=== PATIENT | female | born 1990 | race Caucasian/White ===

== ENCOUNTER 2019-01-30 07:40 | Observation (INO) | payer BC, MEDICAID ==
[2019-01-30 08:39] LABS: ADD MAN DIFF? NO
[2019-01-30] MEDS: LACTATED RINGER'S 1,000 ML IV ×3 (08:39→17:07)
[2019-01-30 09:13] LABS: WHITE BLOOD COUNT 6.4 10^3/ul (4.8-10.8)
[2019-01-30 09:13] LABS: BASOPHILS % 0.5 % (0.0-2.0); EOSINOPHILS # 0.2 10^3/ul (0.0-0.5); EOSINOPHILS % 2.5 % (0.0-7.0); HEMATOCRIT 38.5 % (37.0-47.0); HEMOGLOBIN 12.8 g/dl (12.0-16.0); LYMPHOCYTES # 2.4 10^3/ul (0.8-2.9); LYMPHOCYTES % 37.5 % (15.0-51.0); MEAN CORPUSCULAR HEMOGLOBIN 29.8 pg (29.0-33.0); MEAN CORPUSCULAR HGB CONC 33.2 g/dl (32.0-37.0); MEAN CORPUSCULAR VOLUME 89.5 fl (82.0-101.0); MEAN PLATELET VOLUME 10.6 fl (7.4-10.4); MONOCYTE # 0.4 10^3/ul (0.3-0.9); MONOCYTES % 6.4 % (0.0-11.0); NEUTROPHIL # 3.4 10^3/ul (1.6-7.5); NEUTROPHILS % 52.9 % (39.0-77.0); PLATELET COUNT 240 10^3/UL (140-415)
[2019-01-30] MEDS ORDERED: BUPIVACAINE 0.5%/EPI (SDV) 30 ML INJ (09:35)
[2019-01-30] MEDS ORDERED: ROCURONIUM 50 MG INJ (10:22)
[2019-01-30] MEDS ORDERED: MIDAZOLAM 1 MG/ML 2 ML INJ (10:22)
[2019-01-30] MEDS ORDERED: LIDOCAINE 100 MG SYRINGE (10:22)
[2019-01-30] MEDS ORDERED: PROPOFOL 20 ML (10:22)
[2019-01-30] MEDS ORDERED: CEFAZOLIN 1 GM INJ (10:22)
[2019-01-30] MEDS ORDERED: FENTAnyl 50 MCG/ML VIAL ×2 (10:22→11:42)
[2019-01-30] MEDS ORDERED: DEXAMETHASONE 4 MG/ML 5 ML INJ (10:23)
[2019-01-30] MEDS ORDERED: SUGAMMADEX SODIUM 200 MG/2 ML VIAL IV (10:23)
[2019-01-30] MEDS ORDERED: ONDANSETRON 4 MG INJ (10:23)
[2019-01-30] MEDS ORDERED: METOCLOPRAMIDE 10 MG INJ IV (10:30)
[2019-01-30] MEDS ORDERED: FENTAnyl 50 MCG/ML VIAL IV (10:30)
[2019-01-30] MEDS ORDERED: DESFLURANE 15 MIN (10:30)
[2019-01-30] MEDS ORDERED: LABETALOL HCL 20MG INJ IV (10:30)
[2019-01-30] MEDS ORDERED: HYDROmorphONE 1 MG/5 ML IV SYRINGE IV (10:30)
[2019-01-30] MEDS ORDERED: hydrALAzine 20 MG INJ IV (10:30)
[2019-01-30] MEDS: BUPIVACAINE 0.5%/EPI (SDV) 30 ML INJ INJ ×2 (11:09)
[2019-01-30] MEDS: HYDROmorphONE 1 MG/5 ML IV SYRINGE IV ×2 (12:53→12:58)
[2019-01-30] MEDS: MEPERIDINE 25 MG INJ IV (13:13)
[2019-01-30] MEDS: ONDANSETRON 4 MG INJ IV (13:13)
[2019-01-30] MEDS ORDERED: ONDANSETRON 4 MG INJ IV (13:30)
[2019-01-30] MEDS ORDERED: DIPHENHYDRAMINE 50 MG INJ IV (13:30)
[2019-01-30] MEDS ORDERED: HYDROCODONE/APAP (5/325) TAB PO (13:30)
[2019-01-30] MEDS ORDERED: KETOROLAC 30 MG INJ (13:33)
[2019-01-30] MEDS: FENTAnyl 50 MCG/ML VIAL IV ×2 (13:40→14:17)
[2019-01-30] MEDS: KETOROLAC 30 MG INJ IV ×2 (15:44→23:27)
[2019-01-30 16:07] LABS: ADD MAN DIFF? NO
[2019-01-30 16:09] LABS: ABNORMAL IP MESSAGE 1; BASOPHILS % 0.2 % (0.0-2.0); HEMATOCRIT 33.9 % (37.0-47.0); HEMOGLOBIN 11.5 g/dl (12.0-16.0); LYMPHOCYTES # 0.6 10^3/ul (0.8-2.9); LYMPHOCYTES % 4.6 % (15.0-51.0); MEAN CORPUSCULAR HGB CONC 33.9 g/dl (32.0-37.0); MEAN CORPUSCULAR VOLUME 88.5 fl (82.0-101.0); MEAN PLATELET VOLUME 10.1 fl (7.4-10.4); MONOCYTE # 0.2 10^3/ul (0.3-0.9); MONOCYTES % 1.5 % (0.0-11.0); NEUTROPHIL # 11.5 10^3/ul (1.6-7.5); NEUTROPHILS % 93.4 % (39.0-77.0); PLATELET COUNT 212 10^3/UL (140-415); RED BLOOD COUNT 3.83 10^6/ul (4.20-5.40); RED CELL DISTRIBUTION WIDTH 12.8 % (11.5-14.5)
[2019-01-30 16:09] LABS: WHITE BLOOD COUNT 12.4 10^3/ul (4.8-10.8)
[2019-01-30 16:14] LABS: POSITIVE DIFF @See below
[2019-01-31 05:00] LABS: ADD MAN DIFF? NO
[2019-01-31 05:03] LABS: BASOPHILS % 0.1 % (0.0-2.0); HEMATOCRIT 32.4 % (37.0-47.0); HEMOGLOBIN 10.9 g/dl (12.0-16.0); LYMPHOCYTES # 1.7 10^3/ul (0.8-2.9); LYMPHOCYTES % 14.5 % (15.0-51.0); MEAN CORPUSCULAR HEMOGLOBIN 29.8 pg (29.0-33.0); MEAN CORPUSCULAR HGB CONC 33.6 g/dl (32.0-37.0); MEAN CORPUSCULAR VOLUME 88.5 fl (82.0-101.0); MEAN PLATELET VOLUME 10.7 fl (7.4-10.4); MONOCYTE # 0.9 10^3/ul (0.3-0.9); MONOCYTES % 7.7 % (0.0-11.0); NEUTROPHILS % 77.4 % (39.0-77.0); PLATELET COUNT 208 10^3/UL (140-415); RED BLOOD COUNT 3.66 10^6/ul (4.20-5.40)
[2019-01-31 05:03] LABS: WHITE BLOOD COUNT 11.7 10^3/ul (4.8-10.8)
[2019-01-31] MEDS: KETOROLAC 30 MG INJ IV (06:27)
[2019-01-31] MEDS: LACTATED RINGER'S 1,000 ML IV (09:17)
== END 2019-01-31 14:20 | disposition home or self-care (01) ==
LOC: SDS 07:40 → MS1 16:06
PROVIDERS: Obstetrics & Gynecology
DX: Z30.2 Encounter for sterilization (principal)
CPT/HCPCS: 58600; 85025; 86850; 86900; 86901; 87086; 88302